=== PATIENT | female | born 1955 | race Asian ===

== ENCOUNTER 2020-02-01 14:23 | Observation (INO) | payer MEDICARE, OTHER ==
[~2020-02-01] VITALS: Ht 152.4 cm; Wt 63.0 kg
[~2020-02-01 14:23] MED LIST: EPIPEN0.3 MG/0.3; ESCI10 PO; FAMO40 PO; HYDCHL12.5; HYDPAM50 PO; MICROZIDE12.5 MG; MONT10T PO; PRED20 PO; SYNTHROID25 MCG PO; ZOLP10 PO
[2020-02-01 14:56] LABS: BASOPHILS ABSOLUTE AUTO 0.03 K/mm3 (0.00-0.23); BASOPHILS PERCENT AUTO 1 % (0-2); EOSINOPHILS ABSOLUTE AUTO 0.23 K/mm3 (0.00-0.68); EOSINOPHILS PERCENT AUTO 4 % (0-6); Hematocrit 39.1 % (33.0-51.0); Hemoglobin 12.8 g/dL (11.5-16.0); IMMATURE GRAN ABSOLUTE AUTO 0.01 K/mm3 (0.00-0.10); IMMATURE GRAN PERCENT AUTO 0 % (0-1); LYMPHOCYTES PERCENT AUTO 43 % (21-46); MONOCYTES ABSOLUTE AUTO 0.53 K/mm3 (0.16-1.47); MONOCYTES PERCENT AUTO 9 % (4-13); Mean Corpuscular HGB 29.2 pg (26.0-34.0); Mean Corpuscular HGB Conc 32.7 g/dL (31.5-36.5); Mean Corpuscular Volume 89 fL (80-100); Mean Platelet Volume 8.9 fL (9.1-12.4); NEUTROPHILS ABSOLUTE AUTO 2.57 K/mm3 (1.96-9.15); NEUTROPHILS PERCENT AUTO 44 % (41-73); Platelet Count 272 K/mm3 (150-400); RDW Coefficient Variation 14.3 % (11.7-14.2); RDW Standard Deviation 46.6 fL (35.1-46.3); Red Blood Cell Count 4.39 M/mm3 (3.80-5.20); White Blood Cell Count 5.87 K/mm3 (4.00-11.30)
[2020-02-01 15:18] LABS: Alanine Aminotransfer (ALT/SGP 26 U/L (12-78); Albumin, Blood 3.7 g/dL (3.4-5.0); Alk Phos 50 U/L (50-136); Anion Gap 5 mmol/L (6-16); Aspartate Aminotrans (AST/SGOT 19 U/L (12-37); Bilirubin, Total 0.4 mg/dL (0.1-1.0); Blood Urea Nitrogen 20 mg/dL (8-24); Bun/Creatinine Ratio 25.5 (12.0-20.0); CO2, Blood 31 mmol/L (21-32); Calcium, Blood 9.2 mg/dL (8.5-10.1); Chloride, Blood 105 mmol/L (98-108); Creatinine, Blood 0.79 mg/dL (0.40-1.00); Globulin, Blood 3.6 g/dL (2.2-4.0); Glomerular Filtration Rate >60 (60-); Glucose, Blood 93 mg/dL (70-99); Potassium, Blood 3.3 mmol/L (3.5-5.5); Sodium, Blood 141 mmol/L (136-145); Total Protein, Blood 7.3 g/dL (6.4-8.2); Troponin I <0.015 ng/mL (0.000-0.040)
[2020-02-01 18:58] LABS: Source, Urine Voided
[2020-02-01 19:02] LABS: Appearance, Urine Clear (Clear); Bilirubin, Urine Neg (Neg); Blood, Urine Neg (Neg); Color, Urine Yellow (P-Yellow); Glucose Qualitative, Urine Neg (Neg); Ketones, Urine Neg (Neg); Leukocyte Esterase, Urine Neg (Neg); Nitrite, Urine Neg (Neg); Protein, Urine Neg (Neg); Specific Gravity, Urine 1.015 (1.003-1.022); Urobilinogen, Urine NORM (Normal)
[2020-02-01] MEDS ORDERED: HYDCHL12.5 PO (21:03)
[2020-02-02 00:18] LABS: CPK Creatine Kinase 74 U/L (26-193); Troponin I <0.015 ng/mL (0.000-0.040)
[2020-02-02 04:11] LABS: BASOPHILS ABSOLUTE AUTO 0.03 K/mm3 (0.00-0.23); BASOPHILS PERCENT AUTO 1 % (0-2); EOSINOPHILS ABSOLUTE AUTO 0.22 K/mm3 (0.00-0.68); EOSINOPHILS PERCENT AUTO 4 % (0-6); Hematocrit 40.2 % (33.0-51.0); Hemoglobin 12.9 g/dL (11.5-16.0); IMMATURE GRAN ABSOLUTE AUTO 0.01 K/mm3 (0.00-0.10); IMMATURE GRAN PERCENT AUTO 0 % (0-1); LYMPHOCYTES ABSOLUTE AUTO 2.31 K/mm3 (0.84-5.20); LYMPHOCYTES PERCENT AUTO 40 % (21-46); MONOCYTES PERCENT AUTO 9 % (4-13); Mean Corpuscular HGB 28.5 pg (26.0-34.0); Mean Corpuscular HGB Conc 32.1 g/dL (31.5-36.5); Mean Corpuscular Volume 89 fL (80-100); NEUTROPHILS ABSOLUTE AUTO 2.75 K/mm3 (1.96-9.15); NEUTROPHILS PERCENT AUTO 47 % (41-73); Platelet Count 270 K/mm3 (150-400); RDW Coefficient Variation 14.1 % (11.7-14.2); RDW Standard Deviation 45.6 fL (35.1-46.3); Red Blood Cell Count 4.53 M/mm3 (3.80-5.20); White Blood Cell Count 5.82 K/mm3 (4.00-11.30)
[2020-02-02 04:29] LABS: Alanine Aminotransfer (ALT/SGP 28 U/L (12-78); Albumin, Blood 3.6 g/dL (3.4-5.0); Albumin/Globulin Ratio 1.1 (0.8-1.8); Alk Phos 49 U/L (50-136); Anion Gap 6 mmol/L (6-16); Aspartate Aminotrans (AST/SGOT 17 U/L (12-37); Bilirubin, Total 0.6 mg/dL (0.1-1.0); Blood Urea Nitrogen 15 mg/dL (8-24); Bun/Creatinine Ratio 20.2 (12.0-20.0); CO2, Blood 30 mmol/L (21-32); Calcium, Blood 9.4 mg/dL (8.5-10.1); Chloride, Blood 106 mmol/L (98-108); Creatinine, Blood 0.74 mg/dL (0.40-1.00); Globulin, Blood 3.3 g/dL (2.2-4.0); Glomerular Filtration Rate >60 (60-); Glucose, Blood 101 mg/dL (70-99); Potassium, Blood 3.8 mmol/L (3.5-5.5); Sodium, Blood 142 mmol/L (136-145); Total Protein, Blood 6.9 g/dL (6.4-8.2)
[2020-02-02 08:01] LABS: CPK Creatine Kinase 67 U/L (26-193); Troponin I <0.015 ng/mL (0.000-0.040)
--- NOTE | 2020-02-02 11:24 | NUR ---
RECEIVED REPORT FROM BYRON BRADEN
--- NOTE | 2020-02-02 12:39 | NUR ---
PT IS ALERT ORIENTED X4; CALLS APPROPRIATELY. PT CAME IN TO ED BECAUSE OF CP ON LEFT ARM THAT RADIATES TO NECK. PT HAD AN EPISODES THIS AM ABOUT 10AM THAT LASTED ABOUT AN HOUR AND RESOLVED IN ITS OWN. DENIES SOB AND CP AT THIS TIME DURING ADMISSION. PT WAS GIVEN LOVENOX DUE TO ELEVATED D-DIMER. PT WILL HAVE VQ SCAN AT 1300. PT IS INDEPENDENT IN THE ROOM, ON RA AND ON TELE- NSR @70S. PT IS A GLUTEN FREE/VEGETARIAN DIET. ORIENTED TO ROOM BED IS IN THE LOWEST POSITION AND CALL LIGHTS WITHIN REACH
[2020-02-02] MEDS ORDERED: Prinivil10 MG PO (16:15)
[2020-02-02] MEDS ORDERED: OMEP20ER PO (16:15)
[2020-02-02] MEDS ORDERED: ASPI81CH PO (16:16)
--- NOTE | 2020-02-02 16:42 | NUR ---
DISCHARGE PT DISCHARGED TO HOME. WALKED WITH . IV DCD. PT EDUCATED AND AWARE ABOUT ESTABLISHING A NEW PCP. PT STATED THAT HER PCP JUST . SHE WILL CONTACT HER CLINIC TO ESTABLISH A NEW PCP. STRESS TEST ORDERED FOR NEXT WEEK BY DR GONZALEZ AND PT AWARE . SENT MEDS TO [facility] AND EDUCATED THE PT ABOUT THE NEW MEDS. PT VSS AND NO CP AT DISCHARGE.
== END 2020-02-02 16:38 | disposition home or self-care (01) ==
LOC: ER 14:23 → ERHOLD 14:24 → MEDS 02-02 11:30
PROVIDERS: Emergency Medicine; Physician Assistant; ADMIT Internal Medicine
DX: I10 Essential (primary) hypertension (principal); R73.03 Prediabetes; R79.1 Abnormal coagulation profile; E03.9 Hypothyroidism, unspecified; J45.909 Unspecified asthma, uncomplicated; E78.00 Pure hypercholesterolemia, unspecified; Z79.899 Other long term (current) drug therapy; Z88.1 Allergy status to other antibiotic agents; Z88.2 Allergy status to sulfonamides; Z88.5 Allergy status to narcotic agent; Z88.8 Allergy status to other drugs, medicaments and biological substances; Z91.041 Radiographic dye allergy status; Z91.030 Bee allergy status; Z85.820 Personal history of malignant melanoma of skin; Z23 Encounter for immunization
CPT/HCPCS: 36415; 71046; 78580; 80053; 81003; 82550; 84484; 85025; 85379; 93005; 93010; 96372; 99285-25; A9270; A9270-GY; A9540; G0378; J1650

== ENCOUNTER 2020-09-19 08:20 | Day surgery (SDC) | payer MEDICARE, OTHER ==
[~2020-09-19] VITALS: Ht 152.4 cm; Wt 62.9 kg
[~2020-09-19 08:20] MED LIST changes: +ASPI81CH PO; +HYDCHL12.5 PO; +Lisinopril2.5 MG PO; +OMEP20ER PO; +Prinivil10 MG PO
== END 2020-09-19 11:15 | disposition home or self-care (01) ==
LOC: ORSCSDS 08:20
PROVIDERS: Internal Medicine Gastroenterology
PROC: 0DBH8ZX Excision of Cecum, Via Natural or Artificial Opening Endoscopic, Diagnostic (ICD-10-PCS; principal; 2020-09-19 10:00)
DX: Z12.11 Encounter for screening for malignant neoplasm of colon (principal); Z80.0 Family history of malignant neoplasm of digestive organs; Z86.010 Personal history of colon polyps; D12.0 Benign neoplasm of cecum; K57.30 Diverticulosis of large intestine without perforation or abscess without bleeding; G47.30 Sleep apnea, unspecified; Z79.899 Other long term (current) drug therapy
CPT/HCPCS: 88305; J2704; J7120